=== PATIENT | male | born 2005 | race Caucasian/White ===

== ENCOUNTER 2023-08-17 06:51 | Day surgery (SDC) | payer BC, SELFPAY ==
[2023-08-17] MEDS: LACTATED RINGERS 1000 ML 1,000 ML 100 ML IV (07:30)
[2023-08-17 07:43] VITALS: BP 118/69; PULSE 67; RESP 16; TEMP 36.9; O2SAT 97; BMI 19.8
[2023-08-17] MEDS: SODIUM CHLORIDE 0.9 % (FLUSH) 10 ML SYRINGE IVF (07:56)
--- NOTE | 2023-08-17 08:22 | PM.GSPRC ---
Operative Note Pre-op diagnosis: Left axillary cyst/likely hidradenitis Post-op diagnosis: Left axillary hidradenitis Type of Procedure: Left axillary hidradenitis excision Indications: The patient is a 17-year-old male who presented to clinic with a several year history of an area in his left axilla that intermittently becomes infected. On exam it appeared as though he had a focal area hidradenitis with chronic sinus with invagination of the skin upon itself forming a pocket extending inferiorly. We discussed surgical excision and he agreed to proceed. Procedure Description: After discussing the risks and benefits of the procedure, the patient signed informed consent.? The operative site was marked and the patient was brought to the operating room and placed on the operating table in supine position.? Care was taken to pad the patient's pressure points.?? The patient was then given sedation by anesthesia.?? The operative site was then prepped and draped in the usual sterile fashion.? A time-out was then performed. The area of disease was marked out with an ellipse. There was a small area of firmness inferior to the skin pocket. This was approximately 1 cm inferior. Local anesthetic was injected into the skin and subcutaneous tissue around the area of scar. A knife was then used to create an ellipse in the healthy skin in order to encompass this area pocket and scar. This was taken down into subcutaneous fat, staying on top of the axillary fascia. There was no significant infection in the area. It appeared as though this pocket of skin was tethered inferiorly to this inferior area of firmness. There was no external opening inferiorly. I dissected the scarred area away from the skin inferiorly. This was tethered at the dermis. It was dissected free but left a pea-sized area of ecchymosis noted inferiorly, possibly from devascularization. I elected to leave this, to allow it to attempt to reperfuse and heal. Once this was done the specimen was removed and discarded. The wound was then closed without tension in layers using 3-0 Vicryl dermal and 4-0 Monocryl running subcuticular suture. Glue was then applied. Instrument sponge needle counts were correct at the end of the case. The patient was then woken and transported to the recovery area in stable condition. ? The patient tolerated the procedure well. Findings: Area of hidradenitis in the left axilla causing scarring and skin tethering Anesthesia: MAC Surgeon: Liliane Springer MD Estimated blood loss (mL): 5 Additional Specimen Information: None Condition: stable Disposition: same day Date of procedure: 08/17/23
[2023-08-17] MEDS: CEFAZOLIN 1 GM inj IVP (08:56)
[2023-08-17] MEDS: BUPIVACAINE 0.25% 30 ML INJECTION (09:05)
--- NOTE | 2023-08-17 09:19 | SUR.OPER ---
PATIENT QUESTIONS ANSWERED SATISFACTORILY PREOPERATIVELY. PATIENT BROUGHT TO OR #1 PER CART. Patient positioned supine on OR #1 bed. The perioperative team supported arms bilaterally on arm boards. Final approval of positioning by surgeon. SURGEON DECLINES OFFER TO SEND EXCISED TISSUE TO PATHOLOGY.
[2023-08-17 09:45] VITALS: BP 104/50; PULSE 45; RESP 16; TEMP 36.9; O2SAT 99
--- NOTE | 2023-08-17 09:50 | W.ANESCHARGE ---
Anesthesia Charges Start Date/Time Anesthesia Start Date: 08/17/23 Anesthesia Start Time: 08:45 Stop Date/Time Anesthesia Stop Date: 08/17/23 Anesthesia Stop Time: 09:49
[2023-08-17 10:00] VITALS: BP 110/85; PULSE 49; RESP 16; O2SAT 99
[2023-08-17 10:15] VITALS: BP 126/87; PULSE 55; RESP 16; O2SAT 99
[2023-08-17 10:30] VITALS: BP 125/86; PULSE 57; RESP 16; O2SAT 99
== END 2023-08-17 10:46 | disposition home or self-care (01) ==
PROVIDERS: PCP Family Medicine; Visit Provider Surgery
PROC: (CPT 11450; principal; 2023-08-17 08:45)
DX: L73.2 Hidradenitis suppurativa (principal)
CPT/HCPCS: 11450; 00400; J0665; J0690; J2405; J2704; J3010; J7120

== ENCOUNTER 2023-08-19 12:04 | Outpatient (CLI) | payer BC, SELFPAY | END 2023-08-19 12:05 | disposition home or self-care (01) | LOC: FRMREF 12:05 | PROVIDERS: PCP Family Medicine; Visit Provider Surgery | DX: L72.3 Sebaceous cyst (principal); G89.18 Other acute postprocedural pain | CPT/HCPCS: 87070; 87077; 87186 ==